=== PATIENT | female | born 1955 | race Caucasian/White ===

== ENCOUNTER 2017-03-06 15:44 | Inpatient (IN) | payer MEDICAID ==
[2017-03-06 20:31] LABS: BASOPHILS 0.4 % (0-2); EOSINOPHILS 0.4 % (0-7); HEMOGLOBIN 15.7 g/dL (12-16); IMMATURE GRANULOCYTES 0.2 % (0-5); LYMPHOCYTES 27.1 % (15-50); MCH 30.2 pg (26.0-34.0); MCHC 34.1 g/dL (31.0-37.0); MCV 88.5 fL (80.0-100.0); MEAN PLATELET VOLUME 9.2 fL (7.4-10.4); MONOCYTES 11.8 % (2-11); NEUTROPHILS 60.1 % (40-80); PLATELET COUNT 187 10x3/uL (130-400); RDW 13.6 % (11.5-14.5); WBC 9.4 10x3/uL (4.8-10.8)
[2017-03-06 20:45] LABS: ALBUMIN 3.4 g/dL (3.4-5.0); ALKALINE PHOSPHATASE 172 U/L (46-116); ALT (SGPT) 15 U/L (10-68); BILIRUBIN - TOTAL 0.17 mg/dL (0.2-1.3); CALC OSMOLALITY 271 mosm/kg (275-300); CHLORIDE - SERUM 101 mmol/L (98-107); CREATININE - SERUM 0.7 mg/dL (0.6-1.3); GLUCOSE 86 mg/dL (74-106); INR 1.3 (0.85-1.17); POTASSIUM - SERUM 3.9 mmol/L (3.5-5.1); PROTEIN - SERUM 7.9 g/dL (6.4-8.2); PROTIME 16.1 SECONDS (11.6-15.0); SODIUM 137 mmol/L (136-145); UREA NITROGEN 10 mg/dL (7-18); eGFR NON AFRICAN AMERICAN > 90 mL/min (90-120)
[2017-03-06 21:22] LABS: APPEARANCE CLEAR (CLEAR); BILIRUBIN NEGATIVE (NEGATIVE); COLOR YELLOW (YELLOW); GLUCOSE NEGATIVE (NEGATIVE); KETONE NEGATIVE (NEGATIVE); NITRITE NEGATIVE (NEGATIVE); PROTEIN NEGATIVE (NEGATIVE); UROBILINOGEN NORMAL (NORMAL)
[2017-03-07 00:13] VITALS: BP 149/82; BMI 22.2
[2017-03-07 04:00] VITALS: BP 141/67
[2017-03-07] MEDS ORDERED: BACTRIM DS TABL1 TAB PO (05:26)
[2017-03-07] MEDS ORDERED: TYLENOL W/CODEI1 TAB PO (05:28)
[2017-03-07] MEDS ORDERED: NEURONTIN 300300 MG PO (05:30)
[2017-03-07] MEDS ORDERED: OXYBUTYNIN CHLOR5 MG PO (05:32)
--- NOTE | 2017-03-07 07:35 | NUR ---
A&O, DENIES NEEDS, AWAITING TO SEE A DR, ANXIOUS, CALL LIGHT IN REACH, BED LOWEST POSITION, WILL CONTINUE TO MONITOR
[2017-03-07 09:03] VITALS: BP 161/85
[2017-03-07 10:47] LABS: BASOPHILS 0.4 % (0-2); EOSINOPHILS 0.6 % (0-7); HEMATOCRIT 44.2 % (36.0-48.0); HEMOGLOBIN 15.1 g/dL (12-16); IMMATURE GRANULOCYTES 0.3 % (0-5); LYMPHOCYTES 21.7 % (15-50); MCH 30.1 pg (26.0-34.0); MCHC 34.2 g/dL (31.0-37.0); MEAN PLATELET VOLUME 9.5 fL (7.4-10.4); MONOCYTES 10.9 % (2-11); NEUTROPHILS 66.1 % (40-80); PLATELET COUNT 177 10x3/uL (130-400); RBC 5.02 10x6/uL (4.00-5.40); RDW 13.5 % (11.5-14.5); WBC 7.3 10x3/uL (4.8-10.8)
[2017-03-07 10:56] LABS: ALBUMIN 2.9 g/dL (3.4-5.0); ALKALINE PHOSPHATASE 148 U/L (46-116); ALT (SGPT) 13 U/L (10-68); BILIRUBIN - TOTAL 0.28 mg/dL (0.2-1.3); CALC OSMOLALITY 269 mosm/kg (275-300); CALCIUM 8.6 mg/dL (8.5-10.1); CARBON DIOXIDE 24.4 mmol/L (21.0-32.0); CHLORIDE - SERUM 101 mmol/L (98-107); CREATININE - SERUM 0.6 mg/dL (0.6-1.3); GLUCOSE 116 mg/dL (74-106); PROTEIN - SERUM 6.8 g/dL (6.4-8.2); SODIUM 135 mmol/L (136-145); UREA NITROGEN 9 mg/dL (7-18); eGFR NON AFRICAN AMERICAN > 90 mL/min (90-120)
[2017-03-07 11:13] LABS: POTASSIUM - SERUM 4.5 mmol/L (3.5-5.1)
[2017-03-07 11:34] VITALS: BP 127/72
--- NOTE | 2017-03-07 13:02 | NUR ---
Patient Name: DUTCH ORTEGA Admission Status: ER Accout number: [id number] Admission Date: 03-06-2017 : 1955 Admission Diagnosis: Attending: LEONELA KNIGHT Current LOS: 1 Anticipated DC Date: 03-10-2017 Planned Disposition: Home Primary Insurance: MEDICAID [place] Discharge Planning Comments: CM MET WITH PATIENT REGARDING D/C NEEDS AND PLANS. PATIENT STATED SHE LIVES ALONE AND A FRIEND (GORGE JONAS) WILL DRIVE HER HOME AT DISCHARGE. PATIENT STATED SHE HAS 3 STEPS W/RAILS TO ENTER HOME AND NO STAIRS INSIDE. PATIENT STATED SHE IS INDEPENDENT WITH HER CARE AND HAS NO DME AT HOME. PATIENTS PCP IS SWATHI Data Maid AND SHE USES [facility] ON [email or web address] FOR HER PHARMACY. PATIENT IS REFUSING HOME HEALTH. CM WILL CONTINUE TO FOLLOW PATIENT WITH D/C NEEDS AND PLANS. PCP SWATHI STEWART [facility] [address] [phone] GORGE MCDANIEL (FRIEND) [phone] Consumer Credit Counselor: Tracie Gallo Is the patient Alert and Oriented? Yes 0 * How many steps to enter\exit or inside your home? 3-RAILS 0 * PCP [facility] 0 * Pharmacy [facility] [address] 0 * Preadmission Environment Home Alone 0 * ADLs Independent 0 * Equipment None 0 * List name and contact numbers for known caregivers / representatives who currently or will assist patient after discharge: GORGE JONAS (FRIEND) [phone] 0 * Community resources currently utilized None 0 * Additional services required to return to the preadmission environment? Yes 0 * Can the patient safely return to the preadmission environment? Yes 0 * Has this patient been hospitalized within the prior 30 days at any hospital? No 0 Grand Total: 0
--- NOTE | 2017-03-07 14:08 | NUR ---
ASSISTED DR. KNIGHT WITH BREAST EXAM. PT RESTING IN BED REQUESTING SHOWER. WILL DISCUSS WITH NURSE. BED IN LOW POSITION AND CALL LIGHT WITHIN REACH. WILL CONTINUE TO MONITOR.
--- NOTE | 2017-03-07 17:21 | NUR ---
PT SEEN-OUT OF SHOWER-IV RECONNECTED AND INFUSING. RIGHT BREAST OUTER REGION RED WARM SWOLLEN AND FIRM-NO DRAINAGE NOTED. PT FOR SURGERY IN AM-NPO AFTER MIDNIGHT-PT INSTRUCTED IN NO SMOKING OR FOOD/WATER AFTER MIDNIGHT-CONSENTS TO BE SIGNED. CALL LIGHT IN REACH-NO PAIN AT PRESENT
--- NOTE | 2017-03-07 19:30 | NUR ---
RECEIVED PT WALKING IN HALLWAYS NAD NOTED DENIES ANY NEEDS OR DISCOMFORT AT THIS TIME
[2017-03-07 19:57] VITALS: BP 138/76
[2017-03-07 23:49] VITALS: BP 129/76
[2017-03-08 04:00] VITALS: BP 127/77
[2017-03-08 05:52] LABS: BASOPHILS 0.4 % (0-2); EOSINOPHILS 1.1 % (0-7); HEMATOCRIT 45.3 % (36.0-48.0); HEMOGLOBIN 15.3 g/dL (12-16); IMMATURE GRANULOCYTES 0.3 % (0-5); LYMPHOCYTES 30.2 % (15-50); MCH 30.1 pg (26.0-34.0); MCHC 33.8 g/dL (31.0-37.0); MCV 89.2 fL (80.0-100.0); MEAN PLATELET VOLUME 9.2 fL (7.4-10.4); MONOCYTES 14.3 % (2-11); NEUTROPHILS 53.7 % (40-80); PLATELET COUNT 182 10x3/uL (130-400); RBC 5.08 10x6/uL (4.00-5.40); RDW 13.5 % (11.5-14.5); WBC 7.5 10x3/uL (4.8-10.8)
[2017-03-08 06:34] LABS: ALBUMIN 2.8 g/dL (3.4-5.0); ALKALINE PHOSPHATASE 143 U/L (46-116); ALT (SGPT) 12 U/L (10-68); BILIRUBIN - TOTAL 0.22 mg/dL (0.2-1.3); CALC OSMOLALITY 273 mosm/kg (275-300); CALCIUM 8.9 mg/dL (8.5-10.1); CARBON DIOXIDE 24.8 mmol/L (21.0-32.0); CHLORIDE - SERUM 103 mmol/L (98-107); CREATININE - SERUM 0.6 mg/dL (0.6-1.3); GLUCOSE 113 mg/dL (74-106); POTASSIUM - SERUM 4.3 mmol/L (3.5-5.1); PROTEIN - SERUM 6.8 g/dL (6.4-8.2); SODIUM 137 mmol/L (136-145); UREA NITROGEN 10 mg/dL (7-18); eGFR NON AFRICAN AMERICAN > 90 mL/min (90-120)
--- NOTE | 2017-03-08 07:42 | NUR ---
SLEEPING, AROUSES TO VOICE, DENIES NEEDS, NO DISTRESS NOTED, CALL LIGHT IN REACH, BED LOWEST POSITION, WILL CONTINUE TO MONITOR
[2017-03-08 07:50] VITALS: BP 145/83
[2017-03-08 12:23] VITALS: BP 146/81
--- NOTE | 2017-03-08 12:24 | NUR ---
PATIENTLY AWAITING SURGERY, DENIES NEEDS, WILL CONTINUE TO MONITOR
--- NOTE | 2017-03-08 13:18 | NUR ---
REMAINS NPO FOR SURGERY. DENIES NEEDS AT PRESENT TIME. IV PATENT. CALL LIGHT IN REACH, WILL CONTINUE WITH PLAN OF CARE.
[2017-03-08 14:58] VITALS: BMI 22.1
[2017-03-08 15:45] VITALS: BP 162/85
--- NOTE | 2017-03-08 15:52 | NUR ---
RECEIVED TO FLOOR FROM RECOVERY, PT DENIES NEEDS, CALL LIGHT IN REACH, CLEAR LIQUIDS AT BEDSIDE, WILL CONTINUE TO MONITOR
[2017-03-08 19:56] VITALS: BP 135/89
--- NOTE | 2017-03-08 20:13 | NUR ---
PATIENT'S DRESSING TO RIGHT BREAST HAS BLOOD PRESENT. REINFORCED DRESSING WITH 1 PACKAGE OF 4X4 GAUZE.
[2017-03-08 23:56] VITALS: BP 140/70
[2017-03-09 04:00] VITALS: BP 112/72
[2017-03-09 05:25] LABS: BASOPHILS 0.3 % (0-2); EOSINOPHILS 0.3 % (0-7); HEMATOCRIT 44.3 % (36.0-48.0); HEMOGLOBIN 14.9 g/dL (12-16); IMMATURE GRANULOCYTES 0.1 % (0-5); LYMPHOCYTES 27.1 % (15-50); MCH 29.9 pg (26.0-34.0); MCHC 33.6 g/dL (31.0-37.0); MCV 88.8 fL (80.0-100.0); MEAN PLATELET VOLUME 9.3 fL (7.4-10.4); MONOCYTES 11.4 % (2-11); NEUTROPHILS 60.8 % (40-80); PLATELET COUNT 184 10x3/uL (130-400); RBC 4.99 10x6/uL (4.00-5.40); RDW 13.5 % (11.5-14.5); WBC 6.8 10x3/uL (4.8-10.8)
[2017-03-09 05:44] LABS: ALBUMIN 2.6 g/dL (3.4-5.0); ALKALINE PHOSPHATASE 137 U/L (46-116); ALT (SGPT) 13 U/L (10-68); BILIRUBIN - TOTAL 0.17 mg/dL (0.2-1.3); CALC OSMOLALITY 275 mosm/kg (275-300); CALCIUM 8.5 mg/dL (8.5-10.1); CARBON DIOXIDE 27.5 mmol/L (21.0-32.0); CHLORIDE - SERUM 103 mmol/L (98-107); CREATININE - SERUM 0.5 mg/dL (0.6-1.3); GLUCOSE 137 mg/dL (74-106); POTASSIUM - SERUM 3.9 mmol/L (3.5-5.1); PROTEIN - SERUM 6.6 g/dL (6.4-8.2); SODIUM 138 mmol/L (136-145); eGFR NON AFRICAN AMERICAN > 90 mL/min (90-120)
[2017-03-09 06:01] LABS: UREA NITROGEN 7 mg/dL (7-18)
[2017-03-09 08:30] VITALS: BP 151/83
--- NOTE | 2017-03-09 10:03 | NUR ---
RESTING QUIETLY IN BED. VISITING WITH NURSE. DRESSING C/D/I TO R BREAST. SWELLING NOTED TO OUTER ASPECT OF BREAST. DENIES ANY NEEDS AT THIS TIME. SCD'S IN USE TO BILAT LEGS.
[2017-03-09 12:13] VITALS: BP 136/69
[2017-03-09 15:48] VITALS: BP 142/73
[2017-03-09 20:00] VITALS: BP 165/94
[2017-03-10] VITALS: BP 133/72
[2017-03-10 04:00] VITALS: BP 158/71
[2017-03-10 07:01] LABS: BASOPHILS 0.5 % (0-2); EOSINOPHILS 1.3 % (0-7); HEMATOCRIT 43.1 % (36.0-48.0); HEMOGLOBIN 14.3 g/dL (12-16); IMMATURE GRANULOCYTES 0.5 % (0-5); LYMPHOCYTES 45.3 % (15-50); MCH 29.7 pg (26.0-34.0); MCHC 33.2 g/dL (31.0-37.0); MCV 89.4 fL (80.0-100.0); MONOCYTES 12.8 % (2-11); NEUTROPHILS 39.6 % (40-80); PLATELET COUNT 182 10x3/uL (130-400); RBC 4.82 10x6/uL (4.00-5.40); RDW 13.5 % (11.5-14.5)
[2017-03-10 07:29] LABS: ALBUMIN 2.6 g/dL (3.4-5.0); ALKALINE PHOSPHATASE 123 U/L (46-116); ALT (SGPT) 12 U/L (10-68); CALCIUM 8.2 mg/dL (8.5-10.1); CARBON DIOXIDE 26.6 mmol/L (21.0-32.0); CHLORIDE - SERUM 104 mmol/L (98-107); CREATININE - SERUM 0.6 mg/dL (0.6-1.3); GLUCOSE 134 mg/dL (74-106); POTASSIUM - SERUM 4.1 mmol/L (3.5-5.1); PROTEIN - SERUM 6.2 g/dL (6.4-8.2); SODIUM 138 mmol/L (136-145); eGFR NON AFRICAN AMERICAN > 90 mL/min (90-120)
[2017-03-10 07:33] LABS: CALC OSMOLALITY 276 mosm/kg (275-300); UREA NITROGEN 9 mg/dL (7-18)
[2017-03-10 08:50] VITALS: BP 157/99
--- NOTE | 2017-03-10 08:52 | NUR ---
REC'D IN BED AWAKE AND ALERT. RESP EVEN AND UNLABORED WITH NO DISTRESS NOTED. CAN EXPRESS NEEDS AND AND WANTS. NO C/O PAIN NOTED. ASSESSMENT COMPLETED. C/L IN REACH AT BEDSIDE.
--- NOTE | 2017-03-10 08:59 | NUR ---
CM REASSESSMENT NOTE: PATIENT IS DISCHARGING HOME TODAY/PATIENT STATED HER FRIEND WILL DRIVE HER HOME. PATIENT REFUSED HH OR ANY NEEDS FOR DISCHARGE
[2017-03-10] MEDS ORDERED: FLORANEX / LACT1 TAB PO (09:56)
[2017-03-10] MEDS ORDERED: CLEOCIN HCL300 MG PO (09:57)
--- NOTE | 2017-03-17 10:04 | OP ---
PATIENT NAME: DUTCH ORTEGA MEDICAL RECORD: [id number] :[birth year] LOCATION:[facility] [place] ADMISSION DATE:03/06/17 SURGEON: EVANGELISTA BRYAN MD DATE OF OPERATION: 03/08/2017 PREOPERATIVE DIAGNOSIS: Right breast abscess, rule out inflammatory right breast carcinoma. POSTOPERATIVE DIAGNOSIS: Right breast abscess, rule out inflammatory right breast carcinoma; path pending. PROCEDURES: 1. Incision and drainage of right breast abscess with marsupialization and packing of the wound. 2. Incision of right breast biopsy. SURGEON: Evangelista Bryan MD MACHINE CLOTHING REPLACER: None. BLOOD LOSS: 25 cc. ANESTHESIA: General. COMPLICATIONS: None. The risks, possible complications and alternatives to procedure were explained to the patient. She elects to proceed. OPERATIVE COURSE: The patient was conveyed to the operating room electively on 03/08/2017. General anesthesia was induced by the anesthesia staff. The right breast was sterilely prepped and draped. At the 3 o'clock position, through the use of double curvilinear incisions, I excised the skin and subcutaneous tissue overlying an abscess cavity. I entered an abscess cavity bluntly. There was a great amount of beige pus. This was aspirated. Cultures were obtained. I then curetted out the abscess cavity with bone curettes. I took some incisional breast biopsies, utilizing a rongeur at the margins of the abscess cavity. I irrigated with hydrogen peroxide. I then marsupialized the wound with a running locking 3-0 Vicryl Rapide suture. I packed the cavity with 2-inch Kerlix that have been soaked in hydrogen peroxide. A sterile dressing was applied. The patient was then extubated and conveyed to post-anesthesia care unit. I went out to the waiting area. No family members were present. TRANSINT:[id number] Voice Confirmation ID: [id number] DOCUMENT ID: [id number] CC: Tisha Adams APN, Clive Mancuso. OPERATIVE REPORT [id number] JORDANJERAMIEEVANGELISTA GRAJEDA MD at 1004 CC: [employer] PAT [facility] and LEONELA KNIGHT MD [id number] DICTATION DATE: 03/08/17 1514 INSTRUCTIONAL DESIGN CONSULTANT: 03/08/17 1834 DIS IN 03/10/17 [facility] [address] [place], [place] [id number]
--- NOTE | 2017-03-17 10:04 | CN ---
PATIENT NAME:DUTCH ORTEGA MEDICAL RECORD: [id number] : [birth year] LOCATION:[facility] [place] ADMIT DATE: 03/06/17 ACCOUNT: [id number] CONSULTING PHYSICIAN: EVANGELISTA BRYAN MD REFERRING PHYSICIAN: LEONELA KNIGHT MD DATE OF CONSULTATION: 03/07/2017 CHIEF COMPLAINT: Pain. HISTORY OF PRESENT ILLNESS: The patient states that she has had the slow onset of right breast swelling, erythema and pain. The right breast is tender. It does not drain. She has had no history of MRSA abscesses. No history of HIV. No history of hepatitis. The breast is very indurated. It is centrally indurated and I am concerned this could represent inflammatory breast carcinoma. Alternatively, this may just represent a breast abscess. I am going to plan for incision and drainage of the right breast with possible biopsies tomorrow. Palpation aggravates. Nothing alleviates. Symptoms are nonradiating. They have worsened in intensity. The patient was admitted through the Emergency Room. She was sent from the primary care practitioner's office. She describes her pain as a 10/10 on the pain intensity scale. HOME MEDICINES: She states she is on Neurontin as well as some type of pain medicine and some type of antibiotic. ALLERGIES: No known drug allergies. I have personally reviewed the office visit note from her primary care practitioner. DIAGNOSES: History of chronic pain, history of rheumatoid arthritis, history of urinary urgency, history of arm pain, history of radicular syndrome of the lower limbs. HOME MEDICINES: Bactrim-DS, acetaminophen with codeine, oxybutynin, gabapentin. REVIEW OF SYSTEMS: No night sweats, no weight loss, no anorexia, no hemoptysis. SOCIAL HISTORY: She is a smoker. I have advised her to quit smoking. REVIEW OF SYSTEMS: Negative other than as is described above. PHYSICAL EXAMINATION: GENERAL: The patient does not appear acutely ill. She does appear chronically ill. The entire physical examination was performed with the presence of a female nurse. VITAL SIGNS: Stable. EARS: External ears appear normal. EYES: Extraocular movements are intact. NECK: Trachea is midline. CHEST: No intercostal retractions. PULMONARY: Nonlabored, no stridor. ABDOMEN: No peritonitis. CONSULT REPORT [id number] DUTCH ORTEGA BREAST: As described above. INTEGUMENT: As described above. PSYCHIATRIC: Normal affect. NEUROLOGIC: Nonfocal, no lethargy. The patient answers questions appropriately, moves all extremities well. BACK: No thoracic kyphosis. LYMPHATICS: No lymphangitic streaking of the exposed extremities. PSYCHIATRIC: Normal affect. IMPRESSION: Right breast cellulitis with induration, rule out inflammatory breast cancer versus breast abscess. PLAN: Evaluation in the operating room tomorrow, drainage of an abscess and/or breast biopsies in the OR. TRANSINT:[id number] Voice Confirmation ID: [id number] DOCUMENT ID: [id number] CC: Tisha Adams [facility], [id number]. EVANGELISTA BRYAN MD at 1004 CC: [employer] [facility] and LEONELA KNIGHT MD [id number] DICTATION DATE: 03/07/17 1510 QUOTATION CLERK: 03/07/17 1556 DIS IN 03/10/17 [id number] [place] [address]
== END 2017-03-10 13:28 | disposition home or self-care (01) | DRG 584 ==
LOC: D.ER 15:44 → D.MS 22:42
PROVIDERS: Emergency Medicine; Surgery; ADMIT Family Medicine
PROC: 0HBT0ZX Excision of Right Breast, Open Approach, Diagnostic (ICD-10-PCS; 2017-03-08)
PROC: 0H9T0ZZ Drainage of Right Breast, Open Approach (ICD-10-PCS; principal; 2017-03-08 14:00)
DX: N61.1 Abscess of the breast and nipple (principal); F17.203 Nicotine dependence unspecified, with withdrawal; K21.9 Gastro-esophageal reflux disease without esophagitis; I10 Essential (primary) hypertension; N63.0 Unspecified lump in unspecified breast

== ENCOUNTER → 2017-08-09 16:42 | Outpatient (CLI) | payer MEDICAID ==
[~2017-08-09 16:42] MED LIST: BACTRIM DS TABL1 TAB PO; CLEOCIN HCL300 MG PO; FLORANEX / LACT1 TAB PO; NEURONTIN 300300 MG PO; OXYBUTYNIN CHLOR5 MG PO; PERCOCET 10/3251 TA1 PO; TYLENOL W/CODEI1 TAB PO
== END | disposition home or self-care (01) ==
LOC: D.MAMMO 07-18 11:30
DX: R92.8 Other abnormal and inconclusive findings on diagnostic imaging of breast (principal)

== ENCOUNTER 2017-09-05 09:05 | Inpatient (IN) | payer MEDICAID ==
[2017-09-04 13:06] LABS: HEMOGLOBIN 18.5 g/dL (12-16); MCH 31.5 pg (26.0-34.0); MCHC 34.9 g/dL (31.0-37.0); MCV 90.3 fL (80.0-100.0); MEAN PLATELET VOLUME 9.3 fL (7.4-10.4); RBC 5.87 10x6/uL (4.00-5.40); RDW 12.5 % (11.5-14.5); WBC 8.2 10x3/uL (4.8-10.8)
[2017-09-05] VITALS (18 sets, daily range): BP systolic 110–156; BP diastolic 68–90; BMI 20.6; BMI 20.2
[~2017-09-05] VITALS: Ht 162.6 cm; Wt 53.5 kg
--- NOTE | ~2017-09-05 | OP ---
PATIENT NAME: DUTCH ORTEGA MEDICAL RECORD: [id number] :59 LOCATION:[facility] D.2301 ADMISSION DATE:09/05/17 SURGEON: EVANGELISTA BRYAN MD DATE OF OPERATION: 09/05/2017 PREOPERATIVE DIAGNOSES: 1. Degenerative disc disease, L5-S1. 2. Neural foraminal stenosis. 3. Right lower extremity radiculitis. POSTOPERATIVE DIAGNOSES: 1. Degenerative disc disease, L5-S1. 2. Neural foraminal stenosis. 3. Right lower extremity radiculitis. PROCEDURES: Anterior lumbar interbody fusion exposure. This was a cosurgeon case. NEUROSURGEON: Jose Melo MD GENERAL SURGEON: Evangelista Bryan MD. ELECTRICIAN TELEPHONE: Dr. Manuel Hawley ANESTHESIA: General. COMPLICATIONS: None. BLOOD LOSS: Minimal. I was present through the entire operation from the initial skin incision to the final closure. I never left the operating room and was present and assisted Dr. Melo during insertion of the construct. DESCRIPTION OF THE PROCEDURE: The patient was conveyed to the operating room electively on 09/05/2017. General anesthesia was induced by the anesthesia staff. The abdomen was sterilely prepped and draped. An incision was accomplished in the midline. Sharp dissection was carried down through skin and subcutaneous tissue as well as Harjit's fascia. The linea alba was incised in the midline. I then elevated the left rectus abdominis muscle. Creating an extraperitoneal plane, I continued around on the left side. The round ligament was identified and divided. The transversalis fascia was identified and divided. I elevated the epigastric vein. The visceral sac was then pulled to the left. I identified the ureter. The iliac artery and vein were identified. The ureter was protected and undamaged through the entire operation. I identified the L5-S1 disc space. The Bookwalter retractor was then fixated above the incision and the retractor blades were placed. We elevated the bifurcation of the inferior vena cava as well as both common iliac veins. This exposed the L5-S1 disc space. The median sacral vein was cauterized with the bipolar cautery. Dr. Melo then inserted a needle into the L5-S1 disc space and this disc space was confirmed radiographically. I was present and retracted venous structures away from Dr. Melo's operative field while he performed the discectomy and placement of the spinal construct. I was with him during this OPERATIVE REPORT [id number] DUTCH ORTEGA entire procedure and assisted him with retraction of tissue away from his operative site. Once he was finished with insertion of the construct and was satisfied with how it appeared radiographically, I went about closing the abdomen. I released the retractors. There was no bleeding. I identified the left ureter and it was undamaged during the procedure. I noted no evidence of a DVT in the left iliac venous system. There appeared to have been no intestinal injury. No injury to the bladder. The linea alba was closed in the midline with a running looped 0 PDS from the cephalad and caudad directions. Harjit's fascia was approximated with interrupted 3-0 Vicryls. The subdermis was approximated with interrupted 3-0 Vicryls. The skin was approximated with a running intracuticular 3-0 Vicryl. Benzoin and Steri-Strips were applied. The patient was then extubated and conveyed to post-anesthesia care unit where she was in stable condition. TRANSINT:[id number] Voice Confirmation ID: [id number] DOCUMENT ID: [id number] EVANGELISTA BRYAN MD at 1158 CC: JOSE MELO [id number] DICTATION DATE: 09/05/17 1232 PRODUCTION LEADER: 09/05/17 1327 DIS IN 09/07/17 [address] [place] [address]
--- NOTE | ~2017-09-05 | OP ---
PATIENT NAME: DUTCH ORTEGA MEDICAL RECORD: [id number] :59 LOCATION:[facility] D.2301 ADMISSION DATE:09/05/17 SURGEON: JOSE MELO MD DATE OF OPERATION: 09/05/2017 PREOPERATIVE DIAGNOSES: Severe degenerative disc disease, L5-S1 with bilateral foraminal stenosis, L5-S1, and lumbar radiculopathy. POSTOPERATIVE DIAGNOSES: Severe degenerative disc disease, L5-S1 with bilateral foraminal stenosis, L5-S1, and lumbar radiculopathy. PROCEDURE: Anterior lumbar interbody fusion with interbody PEEK cage with ViaCell bone stem cell allograft, anterior lumbar plates. CO-SURGEON: Dr. Diallo SURGEON: Jose Melo MD. DESCRIPTION OF TECHNIQUE: After induction of general endotracheal anesthesia, Dr. Hawley and Dr. Diallo obtained exposure to the anterior L5-S1 interspace. Interspace was confirmed with fluoroscopic x-ray and a spinal needle. The annulus was incised with #11 blade and series of curettes and Rebollar curettes were used to remove the cartilaginous portion of the endplate as well as nucleus pulposus and annulus. Following this, the edges of the bony endplates was prepared with curettes until bony bleeding was obtained. An appropriate sized LDR anterior lumbar interbody cage was placed into the L5-S1 interspace under fluoroscopic control. After good position of the cage was obtained, superior and inferior plates were placed under fluoroscopic control and locked in place with a locking mechanism. Prior to this, the interbody cages filled with ViaCell bone stem cell allograft. Meticulous hemostasis was maintained throughout the wound. The closure was then returned back over to Dr. Diallo and Dr. Hawley. TRANSINT:[id number] Voice Confirmation ID: [id number] DOCUMENT ID: [id number] JOSE MELO MD at 1832 CC: [id number] DICTATION DATE: 10/03/17 1603 STRETCHING PRESS OPERATOR: 10/03/17 1617 DIS IN 09/07/17 [address] [id number] [place] [id number]
[~2017-09-05 09:05] MED LIST changes: -PERCOCET 10/3251 TA1 PO
[2017-09-06] VITALS (10 sets, daily range): BP systolic 128–188; BP diastolic 71–105; Ht 162.6 cm; Wt 53.5 kg
[2017-09-07 03:00] VITALS: BP 147/72
[2017-09-07 07:00] VITALS: BP 148/95
[2017-09-07] MEDS ORDERED: PERCOCET 10/3251 TA1 PO (07:57)
== END 2017-09-07 09:11 | disposition home or self-care (01) | DRG 460 ==
LOC: D.ICU 09:05 → D.OPS 09:05 → EDSTATUS 11:00 → D.PAN 11:00 → D.ICU 12:49 → D.OPS 14:08 → D.ICU 09-07 09:11
PROVIDERS: Anesthesiology; Neurological Surgery
PROC: 0SG30A0 Fusion of Lumbosacral Joint with Interbody Fusion Device, Anterior Approach, Anterior Column, Open Approach (ICD-10-PCS; principal; 2017-09-05 11:00)
DX: M51.17 Intervertebral disc disorders with radiculopathy, lumbosacral region (principal); M48.07 Spinal stenosis, lumbosacral region

== ENCOUNTER 2018-06-03 19:27 | Emergency (ER) | payer MEDICAID ==
[~2018-06-03] VITALS: Ht 162.6 cm; Wt 56.5 kg
[~2018-06-03 19:27] MED LIST changes: +PERCOCET 10/3251 TA1 PO
[2018-06-03 19:41] VITALS: Ht 162.6 cm; Wt 56.5 kg
[2018-06-03 20:52] LABS: BASOPHILS 0.5 % (0-2); EOSINOPHILS 1.5 % (0-7); HEMATOCRIT 46.7 % (36.0-48.0); HEMOGLOBIN 16.3 g/dL (12-16); IMMATURE GRANULOCYTES 0.1 % (0-5); LYMPHOCYTES 34.3 % (15-50); MCH 31.8 pg (26.0-34.0); MCHC 34.9 g/dL (31.0-37.0); MEAN PLATELET VOLUME 9.3 fL (7.4-10.4); MONOCYTES 5.5 % (2-11); NEUTROPHILS 58.1 % (40-80); PLATELET COUNT 267 10x3/uL (130-400); RBC 5.13 10x6/uL (4.00-5.40); RDW 12.7 % (11.5-14.5); WBC 9.6 10x3/uL (4.8-10.8)
[2018-06-03 21:10] LABS: ALBUMIN 3.3 g/dL (3.4-5.0); ALKALINE PHOSPHATASE 124 U/L (46-116); ALT (SGPT) 21 U/L (10-68); BILIRUBIN - TOTAL 0.22 mg/dL (0.2-1.3); CALC OSMOLALITY 278 mosm/kg (275-300); CALCIUM 8.9 mg/dL (8.5-10.1); CARBON DIOXIDE 28.1 mmol/L (21.0-32.0); CHLORIDE - SERUM 99 mmol/L (98-107); CREATININE - SERUM 0.8 mg/dL (0.6-1.3); GLUCOSE 103 mg/dL (74-106); POTASSIUM - SERUM 3.2 mmol/L (3.5-5.1); PROTEIN - SERUM 7.2 g/dL (6.4-8.2); SODIUM 139 mmol/L (136-145); UREA NITROGEN 14 mg/dL (7-18); eGFR NON AFRICAN AMERICAN 77 mL/min (90-120)
[2018-06-03] MEDS ORDERED: ULTRAM50 MG PO (22:00)
[2018-06-03] MEDS ORDERED: CLEOCIN HCL300 MG PO (22:00)
[2018-06-03 23:21] VITALS: BP 167/88
== END 2018-06-03 23:22 | disposition home or self-care (01) ==
LOC: D.ER 19:27
PROVIDERS: Emergency Medicine
DX: N64.9 Disorder of breast, unspecified (principal); I10 Essential (primary) hypertension; F17.200 Nicotine dependence, unspecified, uncomplicated

== ENCOUNTER 2018-06-07 08:00 | Outpatient (CLI) | payer MEDICAID ==
[~2018-06-07 08:00] MED LIST changes: +ULTRAM50 MG PO
[2018-06-08 13:34] VITALS: BMI 21.3
== END 2018-06-07 09:00 | disposition home or self-care (01) ==
LOC: D.MAMMO 08:00
DX: N63.12 Unspecified lump in the right breast, upper inner quadrant (principal)

== ENCOUNTER 2018-06-08 11:09 | Day surgery (SDC) | payer MEDICAID ==
[~2018-06-08] VITALS: Ht 162.6 cm; Wt 56.2 kg
[2018-06-08 13:34] VITALS: BP 167/99; Ht 162.6 cm; Wt 56.2 kg
[2018-06-08 13:53] LABS: HEMATOCRIT 47.3 % (36.0-48.0); HEMOGLOBIN 16.7 g/dL (12-16); MCH 32.4 pg (26.0-34.0); MCHC 35.3 g/dL (31.0-37.0); MCV 91.7 fL (80.0-100.0); MEAN PLATELET VOLUME 9.6 fL (7.4-10.4); RBC 5.16 10x6/uL (4.00-5.40); RDW 12.9 % (11.5-14.5)
--- NOTE | 2018-06-08 20:07 | NUR ---
PATIENT TRANSFERRED BY WHEELCHAIR TO ROOM 2206 SURGERY IS POSTPONED. PATIENT IS AWAKE, ALERT, DENIES COMPLAINTS EXCEPT HUNGER AND FRUSTRATION AT SURGERY POSTPONEMENT. SURGERY STAFF AWARE OF PATIENT'S LOCATION
--- NOTE | 2018-06-08 22:50 | NUR ---
PT RECEIVED TO FLOOR. ALERT AND ORIENTED. NO COMPLAINTS AT THIS TIME EXCEPT HUNGER. PT URINATING WITH NO ISSUES. PT DRINKING WATER. NO REPORTS OF NAUSEA.
--- NOTE | 2018-06-09 21:57 | OP ---
PATIENT NAME: DUTCH ORTEGA MEDICAL RECORD: [id number] :59 LOCATION:D.[facility] ADMISSION DATE: SURGEON: ANGEL BRYAN MD DATE OF OPERATION: 06/08/2018 PREOPERATIVE DIAGNOSES: 1. Sebaceous cyst of the anterior superior chest, symptomatic. 2. Inflamed right breast mass suspicious for inflammatory carcinoma of the breast. POSTOPERATIVE DIAGNOSES: 1. Sebaceous cyst of the anterior superior chest, symptomatic. 2. Inflamed right breast mass suspicious for inflammatory carcinoma of the breast. PROCEDURE: 1. Excision of sebaceous cyst of the anterior superior chest wall. The dimensions of the cyst measured 1.4 x 1.3 cm. The excision, including margins, measured 2.3 x 2.0 cm. This was an intermediate closure. 2. Incisional breast biopsy. 3. Core breast biopsy. SURGEON: Angel Bryan MD SUPERVISOR TOY PARTS FORMER: None. BLOOD LOSS: 25 cc. ANESTHESIA: General. COMPLICATIONS: None. The patient says that unequivocally the breast abscess that she had in the past healed completely. She now presents with an indurated right breast with a significant amount of overlying cellulitis. It has drained purulent material within the last 24 hours. The patient has also undergone a Mammogram and a breast ultrasound and I have reviewed the results of those studies. I am still significantly concerned that there is an inflammatory breast carcinoma present. The risks, possible complications, and alternatives to the procedure were explained to the patient. She elects to proceed. The discussion specifically included, but was not limited to, bleeding requiring emergency reoperation, infection, possible need for additional breast procedures. DESCRIPTION OF PROCEDURE: The patient was conveyed to the operating room electively on 06/08/2018. General anesthesia was induced by the anesthesia staff. The anterior chest was sterilely prepped and draped. I chose to excise the cyst along Glenn's lines. Through the use of double curvilinear incisions, I excised the cyst and surrounding connective tissue. Some additional surrounding connective tissue was excised in a piecemeal fashion. There was keratin debris within the cyst indicating that this was a sebaceous cyst. The excised defect was measured and is listed above. Some subcutaneous flaps were created sharply. The closure consisted of multiple interrupted 3-0 Vicryl sutures for the dermis as well as Dermabond for the skin. OPERATIVE REPORT [id number] DUTCH ORTEGA Attention was then turned to the right breast. At the 3 o'clock position, where there had been some purulent drainage, I performed a generous incisional biopsy including a portion of the nipple. This was through the use of double curvilinear incisions. Purulence was identified. Cultures were obtained. Some additional indurated breast material was excised in a piecemeal fashion. I then took a 14-gauge core biopsy device and obtained some core biopsies within the indurated portion of the breast. Meticulous hemostasis was achieved with electrocautery. I then pour peroxide into the wound. I marsupialized the breast biopsy site with a running locking 3-0 Vicryl Rapide suture. The wound was then packed with a sterile gauze dressing. The patient was then extubated and conveyed to the post-anesthesia care unit. She is to come to the office on Monday for packing removal. She is already on Cleocin. I will give her a prescription for some hydrocodone as well. TRANSINT:[id number] Voice Confirmation ID: [id number] DOCUMENT ID: [id number] ANGEL BRYAN MD at 2157 CC: [id number] DICTATION DATE: 06/08/182142 FULL STACK DEVELOPER: 06/09/18 0108 [facility] 06/09/18 [address] [place] [address]
== END 2018-06-09 | disposition home or self-care (01) ==
LOC: D.OPS 11:09 → D.PAN 13:45 → D.OPS 16:00 → D.MS 20:08 → D.OPS 06-09
PROVIDERS: Anesthesiology
DX: L72.3 Sebaceous cyst (principal)

== ENCOUNTER → 2019-01-08 16:48 | Outpatient (CLI) | payer MEDICAID ==
[2018-06-08 13:34] VITALS: BMI 21.3
== END | disposition home or self-care (01) ==
LOC: D.LABREF 16:48
PROVIDERS: ATTEND Surgery
DX: N61.1 Abscess of the breast and nipple (principal)

== ENCOUNTER 2019-07-16 05:55 | Day surgery (SDC) | payer MEDICAID ==
[2019-07-15 14:59] LABS: BASOPHILS 0.3 % (0-2); EOSINOPHILS 0.8 % (0-7); HEMATOCRIT 48.4 % (36.0-48.0); HEMOGLOBIN 16.6 g/dL (12-16); IMMATURE GRANULOCYTES 0.4 % (0-5); LYMPHOCYTES 15.4 % (15-50); MCH 30.7 pg (26.0-34.0); MCHC 34.3 g/dL (31.0-37.0); MCV 89.6 fL (80.0-100.0); MEAN PLATELET VOLUME 8.9 fL (7.4-10.4); MONOCYTES 8.2 % (2-11); NEUTROPHILS 74.9 % (40-80); PLATELET COUNT 302 10x3/uL (130-400); RDW 12.7 % (11.5-14.5); WBC 14.8 10x3/uL (4.8-10.8)
[2019-07-15 15:37] LABS: CALC OSMOLALITY 271 mosm/kg (275-300); CALCIUM 9.3 mg/dL (8.5-10.1); CARBON DIOXIDE 28.5 mmol/L (21.0-32.0); CHLORIDE - SERUM 101 mmol/L (98-107); CREATININE - SERUM 0.5 mg/dL (0.6-1.3); GLUCOSE 90 mg/dL (74-106); POTASSIUM - SERUM 4.9 mmol/L (3.5-5.1); SODIUM 137 mmol/L (136-145); UREA NITROGEN 8 mg/dL (7-18); eGFR NON AFRICAN AMERICAN > 90 mL/min (90-120)
[~2019-07-16] VITALS: Ht 162.6 cm; Wt 54.4 kg
[2019-07-16] MEDS ORDERED: HYDROCODON-ACE1 EAC7 PO (06:15)
[2019-07-16 06:19] VITALS: BP 180/85; Ht 162.6 cm; Wt 54.4 kg
--- NOTE | 2019-07-16 10:32 | NUR ---
0935 CONSULTED ANESTHESIA REGARDING ELEVATED BLOOD PRESSURE 258/124. VERBAL ORDERS RECEIVED FROM DR. COPELAND TO ADMINISTER HYDRALAZINE 10MG X1 IN PACU STAT AND MAY REPEAT IN 10 MIN. WILL CONTINUE TO MONITOR.
--- NOTE | 2019-07-16 10:43 | NUR ---
1040 FL DIET SERVED.
--- NOTE | 2019-07-16 10:43 | NUR ---
AT 1010 UPDATED ANESTHESIA REGARDING BLOOD PRESSURE 190/102 AFTER ADMINISTERING HYDRALAZINE 20MG IV IN PACU. NO FURTHER ORDERS WERE GIVEN. RECOMMENDATION FROM ANESTHESIA TO FOLLOW UP WITH FAMILY DOCTOR REGARDING THE ABOVE. INFORMED DR. BRYAN ABOVE THE ABOVE. PATIENT VERBALIZED 100% UNDERSTANDING OF THE ABOVE.
--- NOTE | 2019-07-17 10:21 | OP ---
PATIENT NAME: DUTCH ORTEGA MEDICAL RECORD: [id number] :59 LOCATION:D.OPS ADMISSION DATE: SURGEON: ANGEL BRYAN MD DATE OF OPERATION: 07/16/2019 PREOPERATIVE DIAGNOSES: 1. Recurrent abscess of the right breast. 2. New abscess involving the left breast. POSTOPERTIVE DIAGNOSES: Same. PROCEDURE: Excisional debridements of bilateral breasts. The dimensions of debridement, including margins, measured 1.9 x 1.6 cm on the right. The debridement included skin and subcutaneous tissue as well as breast tissue and granulation tissue. Excisional debridement with marsupialization and packing of left breast abscess. The dimensions of the debridement, including margins, measures 3.0 x 2.6 cm included skin and subcutaneous tissue as well as abscess cavity and granulation tissue, also breast tissue. SURGEON: Angel Bryan MD DESIGN ENG: None. BLOOD LOSS: Minimal. ANESTHESIA: General. COMPLICATIONS: None. The risks, possible complications and alternatives to the procedure were explained to the patient. She elects to proceed. The discussion specifically included, but was not limited to, bleeding requiring emergency reoperation, infection, recurrent breast abscess and possibility that she could have an inflammatory breast cancer. OPERATIVE COURSE: The patient was conveyed to the operating room electively on 07/16/2019. General anesthesia was induced by the anesthesia staff. Both breasts were sterilely prepped and draped. The patient still had an open area in the right breast that was at the 3 o'clock position and this was from her prior debridement. It has been draining purulent material. I noted no purulent material upon today's examination. The debridement was a sharp debridement involving curettes. The dimensions of debridement are listed above. I debrided back to viable bleeding tissue. Cultures were obtained. I then took a pituitary rongeur and obtained some breast biopsies. Hemostasis was achieved with the electrocautery. The wound was really too small to pack. I then went around to the left side. There was a soft area involving the left breast and it was at the 9 o'clock position. Through the use of double curvilinear incisions, I incised the skin and subcutaneous tissue overlying the abscess cavity. There was a great deal of pus present. This was expressed. Cultures were obtained. I then performed some blunt dissection in the left breast. There was a great deal of purulence and this had caused destruction a OPERATIVE REPORT [id number] DUTCH ORTEGA good bit of the breast tissue. The entire area underneath the areola had been destroyed by proteolytic enzymes. Continued blunt dissection was performed. Most of the abscess cavity was located lateral to the incision. Hemostasis was achieved with electrocautery. I marsupialized the wound with a running locking 3-0 Vicryl Rapide suture. I then packed the wound with 2-inch Kerlix that had been soaked in quarter strength Dakin's. Sterile dressings were then applied. The patient was then extubated and conveyed to post-anesthesia care unit where she was in stable condition. She will be dismissed home on [place] 10.0 mg #20 and doxycycline 100 mg #20 one p.o. every 12 hours. I will see her in the office on for packing removal. TRANSINT:[id number] Voice Confirmation ID: [id number] DOCUMENT ID: [id number] ANGEL BRYAN MD at 1021 CC: [id number] DICTATION DATE: 07/16/19935 BAND PRESSER: 07/16/19 1522 [facility] 07/16/19 [address] [place] [address]
== END 2019-07-16 11:39 | disposition home or self-care (01) ==
LOC: D.OPS 05:55 → D.PAN 08:00 → D.OPS 08:00
PROVIDERS: ATTEND Surgery
DX: N61.1 Abscess of the breast and nipple (principal); G62.9 Polyneuropathy, unspecified